=== PATIENT | male | born 1995 | race Caucasian/White ===

== ENCOUNTER → 2018-10-06 | Outpatient (CLI) | payer OTHER ==
[2018-10-06 09:54] LABS: ABSOLUTE EOSINOPHILS 0.1 thou/uL (0.0-0.7); ABSOLUTE LYMPHOCYTES 1.9 thou/uL (0.8-5.3); ABSOLUTE MONOCYTES 0.5 thou/uL (0.0-1.2); BASOPHILS 0.7 %; EOSINOPHILS 1.4 %; HEMATOCRIT 43.6 % (42.0-52.0); HEMOGLOBIN 14.6 gm/dL (14.0-18.0); LYMPHOCYTES 29.4 %; MCHC 33.5 g/dL (28.0-37.0); MCV 83.4 fL (80.0-100.0); MONOCYTES 7.5 %; MPV 7.8 fl. (7.2-11.1); NUCLEATED RBCS 0 /100WBC; PLATELET COUNT* 272 thou/uL (150-400); RBC 5.23 mil/uL (4.50-6.00); RDW-CV 13.8 % (10.5-14.5); WBC 6.5 thou/uL (4.0-11.0)
[2018-10-06 10:05] LABS: ALBUMIN 3.6 g/dL (3.4-5.0); ALKALINE PHOSPHATASE 94 U/L (46-116); ANION GAP 5 mmol/L (7-16); BUN 10 mg/dL (7-18); CALCIUM 8.7 mg/dL (8.5-10.1); CHLORIDE 104 mmol/L (98-107); CHOLESTEROL 180 mg/dL (<200); CO2 31 mmol/L (21-32); CREATININE 0.9 mg/dL (0.6-1.3); GLUCOSE 87 mg/dL (70-99); HDL CHOLESTEROL 53 mg/dL (>40); LDL CHOLESTEROL 116 mg/dL (<100); POTASSIUM 3.7 mmol/L (3.5-5.1); SGOT 10 U/L (15-37); SGPT 23 U/L (30-65); SODIUM 140 mmol/L (136-145); TC:HDL 3.4 Ratio (Not establshd); TOTAL BILIRUBIN 0.8 mg/dL (<0.1-1.0); TOTAL PROTEIN 7.2 g/dL (6.4-8.2); TRIGLYCERIDE 58 mg/dL (<150); VLDL 12 mg/dL (<40)
[2018-10-06 10:07] LABS: SERUM ASSESSMENT Clear
[2018-10-06 22:07] LABS: HEPATITIS B SURFACE AG Negative (Negative); HIV-1/HIV-2 ANTIBODY Non Reactive (Non Reactive)
[2018-10-07 02:06] LABS: GLYCOHEMOGLOBIN (HGB A1C) 4.8 % (4.8-5.6)
== END ==
LOC: M.LAB 09:22
PROVIDERS: Family Medicine
DX: R73.09 Other abnormal glucose (principal); R53.83 Other fatigue

== ENCOUNTER → 2021-02-03 | Outpatient (CLI) | payer OTHER ==
[2021-02-03 10:29] LABS: ABSOLUTE BASOPHILS 0.1 thou/uL (0.0-0.2); ABSOLUTE EOSINOPHILS 0.1 thou/uL (0.0-0.7); ABSOLUTE LYMPHOCYTES 1.6 thou/uL (0.8-5.3); ABSOLUTE MONOCYTES 0.6 thou/uL (0.0-1.2); ABSOLUTE NEUTROPHILS 4.9 thou/uL (1.6-8.1); BASOPHILS 0.8 %; EOSINOPHILS 1.2 %; HEMOGLOBIN 15.2 gm/dL (14.0-18.0); LYMPHOCYTES 22.3 %; MCH 26.7 pg (26.0-34.0); MCHC 33.8 g/dL (28.0-37.0); MONOCYTES 8.6 %; MPV 7.4 fl. (7.2-11.1); NUCLEATED RBCS 0 /100WBC; PLATELET COUNT* 329 thou/uL (150-400); POLYS 67.1 %; RBC 5.69 mil/uL (4.50-6.00); RDW-CV 13.4 % (10.5-14.5); WBC 7.3 thou/uL (4.0-11.0)
[2021-02-03 10:49] LABS: ALBUMIN 3.5 g/dL (3.4-5.0); ALKALINE PHOSPHATASE 128 U/L (46-116); ANION GAP 6 mmol/L (7-16); BUN 12 mg/dL (7-18); CALCIUM 8.7 mg/dL (8.5-10.1); CHLORIDE 102 mmol/L (98-107); CHOLESTEROL 198 mg/dL (<200); CO2 29 mmol/L (21-32); CREATININE 0.9 mg/dL (0.6-1.3); GLUCOSE 98 mg/dL (70-99); HDL CHOLESTEROL 44 mg/dL (>40); LDL CHOLESTEROL 123 mg/dL (<100); POTASSIUM 3.9 mmol/L (3.5-5.1); SGOT 24 U/L (15-37); SGPT 48 U/L (30-65); SODIUM 137 mmol/L (136-145); TC:HDL 4.5 Ratio (Not establshd); TOTAL BILIRUBIN 0.7 mg/dL (<0.1-1.0); TOTAL PROTEIN 7.6 g/dL (6.4-8.2); TRIGLYCERIDE 155 mg/dL (<150); VLDL 31 mg/dL (<40)
[2021-02-03 10:50] LABS: SERUM ASSESSMENT Clear
[2021-02-04 06:06] LABS: GLYCOHEMOGLOBIN (HGB A1C) 5.3 % (4.8-5.6)
== END ==
LOC: M.LAB 10:02
PROVIDERS: ATTEND Family Medicine
DX: Z00.01 Encounter for general adult medical examination with abnormal findings (principal); C69.22 Malignant neoplasm of left retina; C69.21 Malignant neoplasm of right retina; R53.83 Other fatigue; R73.09 Other abnormal glucose

== ENCOUNTER → 2021-02-26 | Day surgery (SDC) | payer OTHER ==
[~2021-02-26] MED LIST: MOTRIN IB200 M1
--- NOTE | 2021-02-26 14:54 | OP ---
[address] [address] OPERATIVE REPORT Name: DANNA TAVERAS BALJIT Room: [facility].#: [id number] Admission: 02/26/21 Attend Phys: Gale Hartley DO Discharge: Date of : 89 Report #: [id number] THIS REPORT FOR: cc: Erlin Tan Russell J. DO Brock, Christie M. DO ~ DATE OF SURGERY: 02/26/2021 PREPROCEDURE DIAGNOSIS: Mid back mass and left neck mass. POSTPROCEDURE DIAGNOSIS: Mid back mass and left neck mass. FINDINGS: Mid back mass multilobulated lipoma. Incision was 4.5 cm. Mass measured 8 x 6 x 1.5 cm. Depth of dissection was muscle fascia. Left neck multilobulated lipoma. Incision was 3 cm. Mass 5 x 5.2 x 1.5 cm. Depth, muscle fascia. SURGEON: Gale Hartley DO CO-SURGEON: Michael Tena, PGY-2 CHANGE CONSULTANT: AMANDEEP Padilla3. PROCEDURE PERFORMED: Excision of mid back lipoma and left neck lipoma. ANESTHESIA: General endotracheal and local. ESTIMATED BLOOD LOSS: 20 mL. SPECIMENS: Mid back mass and left neck mass. COMPLICATIONS: None. CONDITION: Stable. DISPOSITION: PACU to home. HISTORY OF PRESENT ILLNESS: The patient is a very pleasant 25-year-old gentleman who presented to my office with a complaint of an enlarging mass on his left neck and on his mid back. On physical exam, these appeared to be lipomas and they were quite sizable. He was then consented for excision of these areas. Risks and benefits were discussed in detail and the patient agreed to proceed. PROCEDURE NOTE: The patient was brought to the operating room. He was laid supine on the operating table. SCDs [place] [address] OPERATIVE REPORT Name: DANNA TAVERAS II Room: [facility]#: [id number] Admission: 02/26/21 Attend Phys: Gale Hartley DO Discharge: Date of : 89 Report #: [id number] Ancef was given in the perioperative period. General endotracheal anesthesia was induced by Anesthesia without difficulty. The patient was then gently moved to the right lateral recumbent position on a kruger bag with all pressure points adequately cushioned. Left neck and back were prepped and draped in the standard sterile fashion. Time-out was performed to verify the patient and procedure. We began with the back mass; 10 mL of 0.5% Marcaine were injected in the area of the planned incision. A 4.5 cm incision was made with a 15 blade. Cautery was used for hemostasis. Cautery was used to dissect down through the subcutaneous tissues until the lipoma was identified. It was quite sizable and was multilobulated. It was completely excised from the surrounding tissues using a combination of blunt and cautery dissection until it was completely excised. It measured 8 x 6 x 1.5 cm and the depth of the mass reached to the muscle fascia. Hemostasis was assured within the wound. Wound was copiously irrigated and was then gently packed with a moistened lap. We then turned our attention to the left neck mass. Incision was marked out over the mass. A 10 mL of 0.5% Marcaine were injected in the area. A 3 cm incision was made with a 15 blade. Cautery was used for hemostasis. Cautery was used to dissect down until the lipoma was identified. Lipoma was again multilobulated. It was completely excised from the surrounding tissue using a combination of blunt and cautery dissection. Final measurements on the mass were 5 x 5.2 x 1.5 cm. Depth of dissection was muscle fascia. This wound was copiously irrigated until clear and hemostasis was assured. Both wounds were then closed in a layered fashion using deep and superficial stitches of 3-0 Vicryl in an inverted interrupted fashion. Skin wound was closed with a running 4-0 Monocryl. A total of 30 mL of 0.5% Marcaine were used to anesthetize the wounds. Wounds were then cleansed and covered with Dermabond. The patient was then rolled supine onto the table. He was extubated and transported to the recovery room with no further difficulties. Counts were correct at the conclusion of the case. <ELECTRONICALLY SIGNED> By: Gale Hartley DO 02/26/21 1454 [id number] [id number] Hartley DO /nt
--- NOTE | 2021-03-10 16:06 | PATH ---
[address] [address] PATHOLOGY RPT PROCEDURE Name: DANNA TAVERAS II Room: [facility].R.#: [id number] Admission: 02/26/21 Date of : 89 Discharge: Report #: [id number] Path Case #: [id number] [facility] Accession Number: [id number] . 01 Material submitted: . PART A: back - BACK LIPOMA PART B: neck - NECK LIPOMA . 02 Diagnosis: A. Back lipoma: - Lipoma. See comment. . B. Neck lipoma: - Lipoma. See comment. . (MANISH:mm; 03/09/2021) QL 03/09/2021 1109 Local . 02 Comment: Properly-controlled *MDM2 immunohistochemical stains performed on A3 and B2 are both negative, supporting the diagnoses. . (MANISH:mml; 03/09/2021) . . *Technical services performed by [facility], [address] [place] [address], [address], [place] [address]. . 02 Electronically signed: . Gigi Whitten MD, Pathologist NPI- [id number] . 01 Gross description: . A. Fixative: Formalin Labeled: Back lipoma Specimen received: Multiple segments of yellow-fatima lobulated tissue Dimensions: 9.3 x 9.2 x 4.1 cm External surface: Smooth to slightly ragged Cut surface: Light yellow, lobulated . Food Service Assistant sections are submitted in cassettes A1 through A4. . B. Fixative: Formalin Labeled: Neck lipoma Specimen received: Several segments of yellow-fatima lobulated tissue Dimensions: 5.3 x 5.0 x 2.6 cm External surface: Smooth to ragged Cut surface: Yellow-fatima, [place] [address] PATHOLOGY RPT PROCEDURE Name: DANNA TAVERAS II Room: [facility]#: [id number] Admission: 02/26/21 Date of : 89 Discharge: Report #: [id number] Path Case #: [id number] . Food Service Assistant sections are submitted in cassettes B1 and B2. (CAA; 02/27/2021) QAC/QAC 02/27/2021 1521 Local . 02 Pathologist provided ICD-10: D17.1, D17.0 . 02 CPT . 665734, 794143, P64113 Specimen Comment: A courtesy copy of this report has been sent to [phone], [phone] Specimen Comment: [id number] Specimen Comment: Report sent to / DR DANG Specimen Comment: A duplicate report has been generated due to demographic updates. Performed at: [address] [facility] [id number] [facility] [address], [place] [id number] MD Blane Frye MD Phone: [phone] Performed at: 02 [facility] [address], [place], [place] [id number] MD Gigi Whitten MD Phone: [phone]
== END | disposition home or self-care (01) ==
LOC: M.SUR 04:50
PROVIDERS: ATTEND Surgery
DX: D17.1 Benign lipomatous neoplasm of skin and subcutaneous tissue of trunk (principal); D17.0 Benign lipomatous neoplasm of skin and subcutaneous tissue of head, face and neck; Z98.890 Other specified postprocedural states; Z20.822 Contact with and (suspected) exposure to COVID-19; Z88.8 Allergy status to other drugs, medicaments and biological substances